=== PATIENT | female | born 1960 | race Caucasian/White ===

== ENCOUNTER 2020-09-15 12:25 | Observation (INO) ==
--- NOTE | 2020-08-19 10:02 | PAT Medication Instructions ---
Medication Instructions Date of Service August 19, 2020 Home Medications Cbd Oil 1 dose PO DAILY Metabolic Mass Spec 1 dose PO QAM Probiotic 1 dose PO QAM aspirin [Aspir-81] 81 mg PO QAM cholecalciferol (vitamin D3) [Vitamin D3] 125 mcg PO QAM ezetimibe 10 mg PO QAM fexofenadine [Tara Allergy] 180 mg PO QAM hydrochlorothiazide 25 mg PO QAM losartan 100 mg PO QAM meloxicam 15 mg PO QPM omeprazole 20 mg PO DAILY PRN ASK your surgeon for instructions meloxicam 15 mg PO QPM STOP taking 2 weeks before surgery (or as soon as possible if surgery is within 2 weeks) Metabolic Mass Spec 1 dose PO QAM DO NOT take the morning of surgery Cbd Oil 1 dose PO DAILY Probiotic 1 dose PO QAM cholecalciferol (vitamin D3) [Vitamin D3] 125 mcg PO QAM fexofenadine [Tara Allergy] 180 mg PO QAM hydrochlorothiazide 25 mg PO QAM losartan 100 mg PO QAM Take morning of surgery With a small sip of water, OTHERWISE NOTHING TO EAT OR DRINK AFTER MIDNIGHT: aspirin [Aspir-81] 81 mg PO QAM (take morning of surgery unless told otherwise by surgeon) ezetimibe 10 mg PO QAM omeprazole 20 mg PO DAILY PRN (if needed) Take evening before surgery omeprazole 20 mg PO DAILY PRN (if needed) Other Notes If you have any questions please call us at [phone] or [phone] or [phone] or [phone]
--- NOTE | 2020-08-21 12:12 | Anesthesiology Consultation ---
Date of Service August 21, 2020 Assessment & Plan (1) Encounter for pre-operative examination: COVID Status: As of 08/21 assessment, patient denies travel to endemic area, known exposure/sick contacts, or symptoms of COVID19. Patient instructed that they and their household members must follow strict social distancing guidelines, wear a mask in public and avoid travel/events/gatherings for 14 days prior to surgery. Preoperative COVID19 testing to be completed prior to surgery per surgeon's arrangements (per pt 09/09). Patient made aware to self-isolate as much as possible between COVID testing and surgery. Chart Review Chart Review: Acceptable Risk for Surgery and Patient seen in Pre Admission Testing Teaching & Discussion Instructed NPO after midnight before surgery, except medications with 15 cc of water. Medication instructions provided according to the PAT guidelines. History Surgery Operation Date: 09/15/20 07:00 Proposed Procedures p Right Anterior Approach Total Hip Arthroplasty - Eddy Miles DO Height/Weight Height: 5 ft 4 in Weight: 92.7 kg Allergies Allergy/AdvReac Type Severity Reaction Status Date / Time No Known Allergies Allergy Verified 07/29/20 13:56 Medications Home Medications Medication Instructions Recorded Confirmed Last Taken Cbd Oil 1 dose PO DAILY 07/29/20 07/29/20 Unknown Metabolic Automotive Designer 1 dose PO QAM 07/29/20 07/29/20 Unknown Probiotic 1 dose PO QAM 07/29/20 07/29/20 Unknown aspirin [Aspir-81] 81 mg PO QAM 07/29/20 07/29/20 Unknown cholecalciferol (vitamin D3) 125 mcg PO QAM 07/29/20 07/29/20 Unknown [Vitamin D3] ezetimibe 10 mg PO QAM 07/29/20 07/29/20 Unknown fexofenadine [Tara Allergy] 180 mg PO QAM 07/29/20 07/29/20 Unknown hydrochlorothiazide 25 mg PO QAM 07/29/20 07/29/20 Unknown losartan 100 mg PO QAM 07/29/20 07/29/20 Unknown meloxicam 15 mg PO QPM 07/29/20 07/29/20 Unknown omeprazole 20 mg PO DAILY PRN 07/29/20 07/29/20 Unknown Past Medical History Medical History (Updated 08/26/20 @ 08:25 by Suraj Villalobos) Bruxism Diverticular disease Fatty liver GERD (gastroesophageal reflux disease) History of gout HLD (hyperlipidemia) HTN (hypertension) Irregular heart rhythm 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 TMJ (temporomandibular joint disorder) Exercise / Class Metabolic Activity II 4-5 Yardwork/Stairs/Walk up hill (Currently limited by severe hip pain but denies CP or SOB with 1 FOS) Past Family History Family History Other No family history of adverse response to anesthesia Past Surgical History Surgical History History of arthroscopy of left knee History of carpal tunnel release of both wrists History of total abdominal hysterectomy and bilateral salpingo-oophorectomy Past Anesthesia History No Hx of Anesthesia Complications and No Family Hx of Anesthesia Complications History of PONV History of PONV (relieved by pretreatment) and Hx of Motion Sickness Social History Smoking Status: Never smoker Do You Dip or Chew Tobacco: No Hx Alcohol Use: Yes alcohol intake frequency: a few times a month Hx Substance Use: No substance use type: does not use Review of Systems Pt denies any recent chest pain, shortness of breath, cough, fever, URI, or unc ontrolled acid reflux. +heart palpitations correlating with hip pain Physical Exam Vital Signs BP: 157/99 P: 93bpm SPO2: 97% RA T: 98.9 F R: 16 ENMT Mouth: + chipped teeth (filling fell out of lower L molar) and + macroglossia; no dentures, no dental restorations and no loose teeth Thyromental Distance: > or= 3.5 Finger Breadths Mallampati Class: II Neck normal visual inspection; neck extension not limited Respiratory normal respiratory effort, lungs clear to auscultation Cardiovascular RRR, no murmur, no edema Vessels: no carotid bruit Testing Laboratory Results 08/21/20 12:34 08/21/20 12:34 PT 9.5 Seconds (9.0-12.0) 08/21/20 12:34 INR 0.9 (0.9-1.1) 08/21/20 12:34 APTT 23.8 Seconds (21.0-31.0) 08/21/20 12:34 Hemoglobin A1c 5.5 % (4.5-5.6) 08/21/20 12:34 Urine Color Yellow 08/21/20 Unknown Urine Appearance Clear (Clear) 08/21/20 Unknown Urine pH 5.0 (4.5-7.5) 08/21/20 Unknown Ur Specific [place] 1.011 (1.000-1.030) 08/21/20 Unknown Urine Protein Negative (Negative) 08/21/20 Unknown Urine Glucose (UA) Negative (Negative) 08/21/20 Unknown Urine Ketones Negative (Negative) 08/21/20 Unknown Urine Nitrite Negative (Negative) 08/21/20 Unknown Ur Leukocyte Esterase Trace (Negative) H 08/21/20 Unknown Urine WBC (Auto) 1-5 /hpf (0-5) 08/21/20 Unknown Urine RBC (Auto) 0-4 /hpf (0-4) 08/21/20 Unknown U Hyaline Cast (Auto) 1-5 /lpf (0-5) 08/21/20 Unknown U Epithel Cells (Auto) 5-10 /lpf (0-5) H 08/21/20 Unknown Urine Bacteria (Auto) Negative (Negative) 08/21/20 Unknown Blood Type A Positive 08/21/20 12:34 Antibody Screen NEGATIVE 08/21/20 12:34 Electrocardiogram Date: 08/21/20 Findings: + NSR @ (77bpm) Nonspecific ST abnormality. Chest X-Ray Date: 08/21/20 Findings: + NAD
--- NOTE | 2020-08-21 12:57 | XRay Report ---
XR chest Pre-admission PA/Lat CLINICAL HISTORY: Chest COMPARISON STUDY: No previous studies for comparison. FINDINGS: The cardiac and mediastinal contours are normal. There is no evidence of focal pulmonary co nsolidation. There is no evidence of failure. No pleural effusions are visualized.[ IMPRESSION: No active disease in the chest. ACT 112: Negative or not required by law. Electronically signed by: Robbie Jurado M.D. 08/21/2020 12:56 PM
[2020-08-21 13:39] LABS: Basophils # (auto) 0.03 K/uL (0-0.2); Basophils % (auto) 0.4 %; Eosinophils # (auto) 0.12 K/uL (0-0.5); Eosinophils % (auto) 1.4 %; Hematocrit (blood only) 39.5 % (37-47); Hemoglobin 12.8 g/dL (12.0-16.0); Immature Granulocytes # (auto) 0.01 K/uL (0.00-0.02); Immature Granulocytes % (auto) 0.1 %; Lymphocytes # (auto) 1.92 K/uL (1.2-3.4); Lymphocytes % (auto) 22.8 %; Mean Corpuscular Hemoglobin 28.8 pg (25-34); Mean Corpuscular Hgb Conc 32.4 g/dL (32-36); Mean Corpuscular Volume 88.8 fL (80-100); Monocytes # (auto) 0.52 K/uL (0.11-0.59); Monocytes % (auto) 6.2 %; Neutrophils # (auto) 5.83 K/uL (1.4-6.5); Neutrophils % (auto) 69.1 %; Platelet Count 303 K/uL (130-400); RDW Coefficient of Variation 13.9 % (11.5-14.5); RDW Standard Deviation 45.7 fL (36.4-46.3); Red Blood Count 4.45 M/uL (4.2-5.4); White Blood Count 8.43 K/uL (4.8-10.8)
[2020-08-21 13:45] LABS: Appearance Urine Clear (Clear); Bacteria Urine Automated Negative (Negative); Bilirubin Urine Negative (Negative); Blood Urine Negative (Negative); Color Urine Yellow; Glucose Urine UA Negative (Negative); Ketones Urine Negative (Negative); Leukocyte Esterase Urine Trace (Negative); Nitrite Urine Negative (Negative); Protein Urine Negative (Negative); RBC Urine Automated 0-4 /hpf (0-4); Specific Gravity Urine 1.011 (1.000-1.030); Urobilinogen Urine Negative (Negative)
[2020-08-21 13:49] LABS: Albumin Level 3.5 gm/dl (3.4-5.0); BUN Creatinine Ratio 23.2 (10-20); Calcium 8.9 mg/dl (8.5-10.1); Creatinine Clr Calc Pharmacy 96.9 ml/min; Est GFR (African American) 110.4; Est GFR (Non-African American) 95.3; Potassium 3.5 mmol/L (3.5-5.1)
[2020-08-21 13:54] LABS: INR 0.9 (0.9-1.1); Partial Thromboplastin Ratio 0.9; Partial Thromboplastin Time 23.8 Seconds (21.0-31.0); Prothrombin Time 9.5 Seconds (9.0-12.0)
[2020-08-21 14:06] LABS: Estimated Average Glucose 111 mg/dl; Hemoglobin A1C 5.5 % (4.5-5.6)
--- NOTE | 2020-08-22 06:57 | Electrocardiogram Report ---
Test Reason : Blood Pressure : / mmHG Vent. Rate : 077 BPM Atrial Rate : 077 BPM P-R Int : 164 ms QRS Dur : 090 ms QT Int : 402 ms P-R-T Axes : 068 035 051 degrees QTc Int : 454 ms Normal sinus rhythm Nonspecific ST abnormality Abnormal ECG No previous ECGs available Confirmed by Homero Lea ([id number]) on 08/22/2020 6:57:41 AM Referred By: Eddy Miles Confirmed By:Homero Lea
--- NOTE | 2020-09-14 09:38 | History & Physical Report ---
Date of Service September 15, 2020 Assessment & Plan (1) Degenerative joint disease of right hip: I have indicated the patient for right anterior total hip replacement. The risks, benefits and complications of surgery were explained to the patient which include but not limited to infection, acute blood loss, DVT/PE, injury to nerves, vessels, bone, soft tissue, arthrofibrosis, chronic pain, failure of the prosthesis, hip dislocation, leg length discrepancy, need for additional surgery, cardiac and pulmonary events and . The patient wished to proceed with surgery and informed consent was obtained at this time. We will plan for 81mg ASA BID post-operatively for DVT prophylaxis. Upon discharge the patient will be discharged home with home health services. Appropriate clearances by PCP were obtained. History of Present Illness Chief Complaint: Right hip pain/DJD/AVN Primary Care Provider: Dr. Bauer The patient is a 59 year old female who presents with complaints of severe right hip pain and DJD. The patient has failed outpatient conservative treatments to this point which included NSAIDs, activity modification, home exercise/walking program. The patient's pain and limited function have progressed to the point where they severely hinder their activities of daily living and they no longer tolerate exercise programs. They are requesting to proceed with total hip replacement surgery. Allergies Allergy/AdvReac Type Severity Reaction Status Date / Time No Known Allergies Allergy Verified 09/15/20 12:49 Home Medications Medication Instructions Recorded Confirmed Type Cbd Oil 1 dose PO DAILY 07/29/20 09/15/20 History Metabolic Inside Technical Sales Representative 1 dose PO QAM 07/29/20 09/15/20 History Probiotic 1 dose PO QAM 07/29/20 09/15/20 History aspirin [Aspir-81] 81 mg PO QAM 07/29/20 09/15/20 History cholecalciferol (vitamin D3) 125 mcg PO QAM 07/29/20 09/15/20 History [Vitamin D3] ezetimibe 10 mg PO QAM 07/29/20 09/15/20 History fexofenadine [Tara Allergy] 180 mg PO QAM 07/29/20 09/15/20 History hydrochlorothiazide 25 mg PO QAM 07/29/20 09/15/20 History losartan 100 mg PO QAM 07/29/20 09/15/20 History meloxicam 15 mg PO QPM 07/29/20 09/15/20 History omeprazole 20 mg PO DAILY PRN 07/29/20 09/15/20 History Past Med/Surg History Medical History Bruxism Diverticular disease Fatty liver GERD (gastroesophageal reflux disease) History of gout HLD (hyperlipidemia) HTN (hypertension) Irregular heart rhythm 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 TMJ (temporomandibular joint disorder) Surgical History History of arthroscopy of left knee History of carpal tunnel release of both wrists History of total abdominal hysterectomy and bilateral salpingo-oophorectomy Family History Other No family history of adverse response to anesthesia Social History Smoking Status: Never smoker Second Hand Exposure: No; Do You Dip or Chew Tobacco: No; Hx Alcohol Use: Yes Hx Substance Use: No Preferred Language: Yakut Communication Ability: Effective Parts Fabricator Required: No Beliefs That Will Affect Care: None Current Living Situation: Alone Feels Safe at Home: Yes Safety Concerns: Feels Safe At This Time Assistive Devices: Glasses Review of Systems Review of Systems: All systems reviewed & are unremarkable except as noted in HPI & below Constitutional: as per Subjective / HPI Physical Exam Physical Exam: RLE NVSI +EHL/FHL/TA/GS SILT grossly, +2 DP pulse, compartments soft NT, limited painful ROM of the hip, antalgic gait. Constitutional: WD/WN, vitals as above Eyes: PERRL, conjunctivae normal, anicteric sclerae ENMT: external ear and nose normal, oropharynx normal Neck: trachea midline, no thyromegaly Respiratory: normal respiratory effort, lungs clear to auscultation Cardiovascular: RRR, no murmur, no edema Gastrointestinal (Abdomen): normal bowel sounds, soft, nontender, no hepatosplenomegaly Musculoskeletal: no cyanosis or clubbing, extremities motor strength 5/5 Skin: no rashes, warm and dry Neurologic: patellar DTR's 2+ bilat, sensation intact Psychiatric: A+Ox3, euthymic affect Lymphatic: no cervical or axillary lymphadenopathy Results & Data Results & Data ([facility]) Diagnostic Findings Multiple views of the hip demonstrates severe DJD with complete loss of the joint space. +osteophytes, +sclerosis, severe AVN of the femoral head Pre Admission Testing Addendum Laboratory Results 08/21/20 12:34 08/21/20 12:34 PT 9.5 Seconds (9.0-12.0) 08/21/20 12:34 INR 0.9 (0.9-1.1) 08/21/20 12:34 APTT 23.8 Seconds (21.0-31.0) 08/21/20 12:34 Hemoglobin A1c 5.5 % (4.5-5.6) 08/21/20 12:34 Urine Color Yellow 08/21/20 Unknown Urine Appearance Clear (Clear) 08/21/20 Unknown Urine pH 5.0 (4.5-7.5) 08/21/20 Unknown Ur Specific [place] 1.011 (1.000-1.030) 08/21/20 Unknown Urine Protein Negative (Negative) 08/21/20 Unknown Urine Glucose (UA) Negative (Negative) 08/21/20 Unknown Urine Ketones Negative (Negative) 08/21/20 Unknown Urine Nitrite Negative (Negative) 08/21/20 Unknown Ur Leukocyte Esterase Trace (Negative) H 08/21/20 Unknown Urine WBC (Auto) 1-5 /hpf (0-5) 08/21/20 Unknown Urine RBC (Auto) 0-4 /hpf (0-4) 08/21/20 Unknown U Hyaline Cast (Auto) 1-5 /lpf (0-5) 08/21/20 Unknown U Epithel Cells (Auto) 5-10 /lpf (0-5) H 08/21/20 Unknown Urine Bacteria (Auto) Negative (Negative) 08/21/20 Unknown Blood Type A Positive 08/21/20 12:34 Antibody Screen NEGATIVE 08/21/20 12:34
[~2020-09-15 12:25] MED LIST: ACETAMINOPHEN 500 MG TAB PO SCH; BUPIVACAINE 0.5 % 5 MG/1 ML PF 10ML VIAL ONE; CeleBREX 200 MG CAP PO SCH; FAMOTIDINE 20 MG TAB PO SCH; GABAPENTIN 600 MG DOSE PO SCH; LR 500ML BOLUS, THEN 15ML/HR IV SCH; METOCLOPRAMIDE HCL 10 MG TABLET PO SCH; ROPIVACAINE 0.5% HCL/PF 150 MG, BUPIVACAINE 0.75% MPF 20 ML, EPINEPHrine 30MG/30ML (OR ... INFIL SCH; Scopolamine 1 MG TDSY TD SCH; TRANEXAMIC ACID 1,000 MG **IV Intra-op IV SCH; TRANEXAMIC ACID 1,000 MG **IV Pre-op IV SCH; ceFAZolin 2000MG 2,000 MG/15 ML SYR IV SCH; dexAMETHasone 4 MG TAB PO SCH
[2020-09-15] MEDS ORDERED: PROPOFOL IV EMULSION 10 MG/ML 20 ML VIAL IV ONE (13:38)
[2020-09-15] MEDS ORDERED: fentaNYL citrate 100 MCG/2 ML VIAL ONE (13:38)
[2020-09-15] MEDS ORDERED: MIDAZOLAM HCL 1 MG/ML 2ML VIAL ONE ×3 (13:38→15:22)
--- NOTE | 2020-09-15 14:33 | History & Physical Bridge Note ---
Date of Service September 15, 2020 History & Physical Bridge Note I have examined the patient, reviewed the History & Physical and in the interval since the performance of the History & Physical I have noted the following changes of clinical significance: no changes noted
[2020-09-15] MEDS ORDERED: ORTHO JOINT ANESTHETIC ONE (14:37)
[2020-09-15] MEDS ORDERED: ePHEDrine sulfate 50 MG/ML AMP IV PRN (15:08)
[2020-09-15] MEDS ORDERED: ATROPINE SULFATE 0.1 MG/ML 10ML SYR IV PRN (15:08)
[2020-09-15] MEDS ORDERED: LIDOCAINE 2% 2 ML VIAL/AMP(20MG/ML) INFIL ONE (16:20)
--- NOTE | 2020-09-15 16:55 | Post Operative Brief Note ---
Immediate Post Op Note v1 Date of Surgery September 15, 2020 Pre & Post Diagnosis Operation Date: 09/15/20 14:20 Pre-Op Diagnosis: Unilateral Primary Osteoarthritis, Left Hip Post-Op Diagnosis: Unilateral Primary Osteoarthritis, Left Hip I identified the patient and participated in the time-out.: Yes Procedure Operation Date: 09/15/20 14:20 Actual Procedures p Right Anterior Approach Total Hip Arthroplasty(Right) - Eddy Miles DO Surgeon Eddy Miles DO Buttonhole Marker Bowen Koroma Estimated Blood Loss 175 Findings Consistent with Post-Op Diagnosis Fluids See anesthesia report Specimens Femoral head Anesthesia Type Spinal MAC Complications none Disposition Disposition: Recovery Room Overlapping Procedure I was present for: the critical portions of procedure. I was immediately available: during the entire case. Back up surgeon: was not required during procedure.
--- NOTE | 2020-09-15 16:57 | Operative Report ---
Post Operative Report Pre & Post Diagnosis Operation Date: 09/15/20 14:20 Pre-Op Diagnosis: Unilateral Primary Osteoarthritis, Left Hip Post-Op Diagnosis: Unilateral Primary Osteoarthritis, Left Hip I identified the patient and participated in the time-out.: Yes Procedure Operation Date: 09/15/20 14:20 Actual Procedures p Right Anterior Approach Total Hip Arthroplasty(Right) - Eddy Miles DO Surgeon Eddy Miles DO Utility Bag Assembler Bowen Koroma Estimated Blood Loss 175 Findings Consistent with Post-Op Diagnosis Fluids See anesthesia report Specimens Femoral head Anesthesia Type Spinal MAC Complications none Disposition Disposition: Recovery Room Indications The patient is a 59-year-old female who presents with severe progressive right hip DJD/AVN who has failed outpatient conservative treatments. I indicated the patient for a anterior total hip replacement and the risks and benefits were explained in detail which include but not limited to infection, bleeding, blood clot, damage to surrounding bone, nerves, vessels, soft tissue, hip dislocation, failure of the prosthesis, leg length discrepancy, need for additional surgery and . The patient agreed to proceed with replacement of the hip and informed consent was obtained. Appropriate clearances were obtained. Description of Procedure COMPONENTS USED: [employer] hip system: Acetabulum size 50, femur size 8 high offset, femoral head 32+0, liner 50x32, acetabular screw 25 mm x 2. DESCRIPTION OF PROCEDURE: Following satisfactory spinal anesthesia, the patient was placed supine on the OR table. The left leg was placed in the well leg nath and the right leg in the traction device. The right leg was prepared with ChloraPrep and draped sterilely. A surgical timeout was performed, patient identified and site eduardo verified. Appropriate antibiotics were given. A standard anterior approach in the interval between the sartorius and tensor muscles was performed. Dissection was carried down through subcutaneous tissues. Electrocautery was utilized for hemostasis. Circumflex femoral vessels were identified, tied and ligated. The anterior capsular fat pad was removed and the capsulotomy was performed revealing the arthritic femoral neck and head. A femoral neck cut was made with reciprocating saw and the bone fragments removed. The acetabular self-retraining retractor was placed. Acetabular reaming was completed under fluoroscopic guidance, a 50 shell was impacted into an anatomic position and secured with a acetabular screw. Local anesthetic was placed and following irrigation, the polyethylene liner was placed. The femur was placed into position of external rotation, extension and adduction. Femoral canal was prepared up to the size 8 high offset. Trial reduction with a 32+ neck length head showed good soft tissue tension, leg lengths restored, and good fit and fill of the proximal canal using fluoroscopic landmarks. The hip was dislocated. The trial component was removed. The final implant was placed. The hip was irrigated with sterile saline solution and reduced. A Betadine soak was performed. After 3 minutes, the hip was once more irrigated with copious sterile saline solution with bacitracin. Rakel-incisional soft tissue was injected utilizing [place] [facility] which includes a combination of Ropivicaine 0.5% 150mg, Bupivicaine 0.5%/Epinephrine 1:200,000 30ml, Toradol 30mg, Dexamethasone 4mg, Ketamine 10mg, Clonidine 100mcg and NSS 30ml solution. The capsule was then closed with 1-0 Vicryl interrupted figure of eight sutures. The fascia was closed with a running suture of #1 Vicryl, the subcutaneous tissues with 2-0 Vicryl and the skin was closed with shara. A sterile dry dressing was applied which included ana maría incisional VAC. The patient tolerated the procedure well and was transported to PACU in stable condition. Due to the complex nature of the procedure, the entire surgery was performed with the operational assistance of Bowen Koroma PA-C. The certified ophthalmic surgical assistant, under direct supervision, was involved in the actual performance of all aspects of the surgical procedure including patient positioning, hemostasis, tissue retraction, instrument management and wound closure. I attest to the content of the Intraoperative Record and any orders documented therein. Any exceptions are noted below.
--- NOTE | 2020-09-15 18:09 | Orthopedic Progress Note ---
Date of Service September 15, 2020 Assessment & Plan (1) Degenerative joint disease of right hip: Status post right anterior total hip arthroplasty -Ancef x24 -DVT prophylaxis: SCDs, teds, 81 mg ASA twice daily -Weight-bear as tolerates right lower extremity -PT/OT -Postoperative x-ray demonstrates well aligned well fixed prosthesis without fracture or dislocation -A.m. labs -DC planning Admission and Anticipated Discharge Date Admission Date: September 15, 2020 Subjective Post Operative Progress Note Patient seen sitting up in bed, comfortable, denies complaints, pain well controlled, no acute issues. Review of Systems Review of Systems: All systems reviewed & are unremarkable except as noted in HPI & below Constitutional: as per Subjective / HPI Physical Exam Physical Exam: Right lower extremity physical exam limited secondary to spinal anesthesia, +2 dorsalis pedis pulse, compartment soft nontender, dressing clean dry and intact. Constitutional: WD/WN, vitals as above Results & Data ([facility]) Vital Signs (Past 12 Hours) Vital Signs Temp Pulse Pulse Resp BP Pulse Ox 09/15/20 17:35 72 18 156/90 H 96 09/15/20 17:25 69 15 160/90 H 95 09/15/20 17:17 36.6 C 77 17 152/83 H 97 09/15/20 13:37 190/110 H 09/15/20 13:01 37.1 C 87 20 191/110 H 97
[2020-09-15] MEDS ORDERED: diphenhydrAMINE Capsule 25 MG CAP PO PRN (18:12)
[2020-09-15] MEDS ORDERED: ONDANSETRON INJ 2 MG/ML 2 ML VIAL IV PRN (18:12)
[2020-09-15] MEDS ORDERED: traMADol HCL 50 MG TABLET PO PRN (18:12)
[2020-09-15] MEDS ORDERED: METOCLOPRAMIDE HCL INJ 5 MG/ML 2 ML VIAL IV PRN (18:12)
[2020-09-15] MEDS ORDERED: NALOXONE HCL 0.4 MG/1 ML VIAL/CARP IV PRN (18:12)
[2020-09-15] MEDS ORDERED: SODIUM CHLORIDE 0.9% 1000ML 1,000 ML IV SCH (18:12)
[2020-09-15] MEDS ORDERED: MAGNESIUM HYDROXIDE SUSP 30 ML UDC PO PRN (18:12)
[2020-09-15] MEDS ORDERED: bisacodyL 10 MG SUPP PR PRN (18:12)
[2020-09-15] MEDS ORDERED: HYDROmorphone INJ 0.5 MG/0.5 ML SYR IV PRN (18:12)
[2020-09-15] MEDS ORDERED: PANTOprazole 40 MG TAB PO PRN (18:21)
[2020-09-15] MEDS: Scopolamine CHECK PATCH PLACEMENT SCH ×2 (18:35→23:25)
--- NOTE | 2020-09-15 18:37 | Anesthesiology Progress Note ---
Date of Service September 15, 2020 Anesthesia Post Procedure Vital Signs Vital Signs: Temp Pulse Pulse Resp BP Pulse Ox 09/15/20 18:15 36.5 C 67 17 168/100 H 98 09/15/20 17:35 72 18 156/90 H 96 09/15/20 17:25 69 15 160/90 H 95 09/15/20 17:17 36.6 C 77 17 152/83 H 97 09/15/20 13:37 190/110 H 09/15/20 13:01 37.1 C 87 20 191/110 H 97 Pain Intensity Right Hip: Pain Intensity: 0 Transfer of Care Handoff Completed per policy Notes Mental Status: alert / awake / arousable and participated in evaluation Patient Amnestic to Procedure: Yes Nausea / Vomiting: adequately controlled Pain: adequately controlled Airway Patency, RR, SpO2: stable & adequate BP & HR: stable & adequate Hydration State: stable & adequate Anesthetic Complications: no major complications apparent and Pt Satisfied with anesthetic care
[2020-09-15] MEDS ORDERED: hydroCHLOROthiazide 25 MG TAB PO STA (18:53)
[2020-09-15] MEDS ORDERED: LOSARTAN POTASSIUM 50 MG TAB PO ONE (19:15)
[2020-09-15] MEDS: KETOROLAC TROMETHAMINE 15 MG/ML VIAL IV SCH (20:29)
[2020-09-15] MEDS: DOCUSATE SODIUM 100 MG CAP PO SCH (20:31)
[2020-09-15] MEDS ORDERED: SENNA 8.6 MG TAB PO SCH (21:00)
[2020-09-15] MEDS: ACETAMINOPHEN 500 MG TAB PO SCH (21:05)
--- NOTE | 2020-09-15 21:29 | Fluoroscopy Report ---
INTRAOPERATIVE RADIOGRAPHS CLINICAL HISTORY: Right hip arthroplasty. Fluoroscopy time: 30 seconds. FINDINGS: 2 spot fluoroscopic views of the right hip are presented. A bipolar right hip arthroplasty is in near-anatomic alignment. At least 2 cortical lag screws transfix the acetabular cup. There is n o evidence of acute fracture on these fluoroscopic views. Arthritic change in the left hip is partial ly visualized. IMPRESSION: Intraoperative images from a right hip arthroplasty procedure as above. Electronically signed by: Taran Read M.D. 09/15/2020 9:28 PM
--- NOTE | 2020-09-15 21:30 | XRay Report ---
SINGLE VIEW PELVIS; SINGLE VIEW RIGHT HIP CLINICAL HISTORY: Postoperative examination. FINDINGS: An AP portable view of the hips and pelvis with a crosstable lateral portable view of the r ight hip are obtained. A bipolar right hip arthroplasty is in near-anatomic alignment. At least 2 co rtical lag screws transfix the acetabular cup. No acute fracture is identified. There are expected po stoperative changes overlying the right hip including skin clips, subcutaneous gas, and soft tissue s welling. IMPRESSION: Expected postoperative findings status post right hip arthroplasty. No acute fracture is seen. ACT 112: Negative or not required by law. Electronically signed by: Taran Read M.D. 09/15/2020 9:29 PM
[2020-09-15] MEDS: ceFAZolin 2000MG 2,000 MG/15 ML SYR IV SCH (23:24)
[2020-09-16] MEDS: KETOROLAC TROMETHAMINE 15 MG/ML VIAL IV SCH ×3 (01:14→12:55)
[2020-09-16] MEDS: ACETAMINOPHEN 500 MG TAB PO SCH ×2 (05:09→12:55)
[2020-09-16 06:56] LABS: Basophils # (auto) 0.01 K/uL (0-0.2); Basophils % (auto) 0.1 %; Eosinophils # (auto) 0.01 K/uL (0-0.5); Eosinophils % (auto) 0.1 %; Hemoglobin 11.9 g/dL (12.0-16.0); Immature Granulocytes # (auto) 0.02 K/uL (0.00-0.02); Immature Granulocytes % (auto) 0.1 %; Lymphocytes # (auto) 1.37 K/uL (1.2-3.4); Mean Corpuscular Hemoglobin 28.9 pg (25-34); Mean Corpuscular Hgb Conc 33.1 g/dL (32-36); Mean Corpuscular Volume 87.4 fL (80-100); Mean Platelet Volume 10.4 fL (7.4-10.4); Monocytes # (auto) 0.94 K/uL (0.11-0.59); Monocytes % (auto) 6.9 %; Neutrophils % (auto) 82.8 %; Platelet Count 279 K/uL (130-400); RDW Coefficient of Variation 13.6 % (11.5-14.5); RDW Standard Deviation 43.7 fL (36.4-46.3); Red Blood Count 4.12 M/uL (4.2-5.4); White Blood Count 13.65 K/uL (4.8-10.8)
[2020-09-16 07:28] LABS: BUN Creatinine Ratio 19.5 (10-20); Calcium 8.8 mg/dl (8.5-10.1); Creatinine Clr Calc Pharmacy 113.7 ml/min; Est GFR (African American) 116.9 ml/min; Est GFR (Non-African American) 100.9 ml/min; Potassium 3.4 mmol/L (3.5-5.1)
[2020-09-16] MEDS: ceFAZolin 2000MG 2,000 MG/15 ML SYR IV SCH (08:28)
[2020-09-16] MEDS: DOCUSATE SODIUM 100 MG CAP PO SCH (08:28)
[2020-09-16] MEDS: Scopolamine CHECK PATCH PLACEMENT SCH (08:30)
[2020-09-16] MEDS ORDERED: LOSARTAN POTASSIUM 50 MG TAB PO SCH (09:00)
[2020-09-16] MEDS ORDERED: hydroCHLOROthiazide 25 MG TAB PO SCH (09:00)
[2020-09-16] MEDS ORDERED: ASPIRIN 81 MG ECTAB PO SCH (09:00)
[2020-09-16] MEDS ORDERED: MULTIVITAMIN TAB PO SCH (09:00)
[2020-09-16] MEDS ORDERED: EZETIMIBE 10 MG TABLET PO SCH (09:00)
--- NOTE | 2020-09-16 10:22 | Orthopedic Progress Note ---
Date of Service September 16, 2020 Assessment & Plan (1) Degenerative joint disease of right hip: Status post right anterior total hip arthroplasty POD#1 -Ancef x24 -DVT prophylaxis: SCDs, teds, 81 mg ASA twice daily -Weight-bear as tolerates right lower extremity -PT/OT -Postoperative x-ray demonstrates well aligned well fixed prosthesis without fracture or dislocation -A.m. labs - as above, hgb 11.9 -DC planning - home with Admission and Anticipated Discharge Date Admission Date: September 15, 2020 Subjective Post Operative Progress Note Patient seen sitting in chair at bedside, comfortable, denies complaints, pain well controlled, no acute issues. Denies F/C/N/V/SOB/CP. Review of Systems Review of Systems: All systems reviewed & are unremarkable except as noted in HPI & below Constitutional: as per Subjective / HPI Physical Exam Physical Exam: RLE NVSI +EHL/FHL/TA/GS SILT grossly, +2 DP pulse, compartments soft NT, dressing cdi. Constitutional: WD/WN, vitals as above Results & Data ([facility]) Vital Signs (Past 12 Hours) Vital Signs Temp Pulse Resp BP Pulse Ox 09/16/20 07:16 36.7 C 55 L 16 117/75 98 09/16/20 03:21 36.9 C 60 16 124/74 96 09/16/20 00:10 37.4 C 67 16 113/72 96 Laboratory Results 09/16/20 09/16/20 09/16/20 Range/Units 06:31 06:31 06:31 WBC 13.65 H (4.8-10.8) K/uL RBC 4.12 L (4.2-5.4) M/uL Hgb 11.9 L (12.0-16.0) g/dL Hct 36.0 L (37-47) % MCV 87.4 (80-100) fL MCH 28.9 (25-34) pg MCHC 33.1 (32-36) g/dL RDW Std Deviation 43.7 (36.4-46.3) fL RDW Coeff of Gilda 13.6 (11.5-14.5) % Plt Count 279 (130-400) K/uL MPV 10.4 (7.4-10.4) fL Immature Gran % (Auto) 0.1 % Neut % (Auto) 82.8 % Lymph % (Auto) 10.0 % [place] % (Auto) 6.9 % Eos % (Auto) 0.1 % Baso % (Auto) 0.1 % Neut # (Auto) 11.30 H (1.4-6.5) K/uL Lymph # (Auto) 1.37 (1.2-3.4) K/uL [place] # (Auto) 0.94 H (0.11-0.59) K/uL Eos # (Auto) 0.01 (0-0.5) K/uL Baso # (Auto) 0.01 (0-0.2) K/uL Immature Gran # (Auto) 0.02 (0.00-0.02) K/uL Sodium 142 (136-145) mmol/L Potassium 3.4 L (3.5-5.1) mmol/L Chloride 109 H (98-107) mmol/L Carbon Dioxide 26 (21-32) mmol/L Anion Gap 7.0 (3-11) BUN 11 (7-18) mg/dl Creatinine 0.58 L (0.6-1.2) mg/dl Est Cr Clr Drug Dosing 113.7 ml/min Est GFR ( Amer) 116.9 ml/min Est GFR (Non-Af Amer) 100.9 ml/min BUN/Creatinine Ratio 19.5 (10-20) Glucose 110 H (70-99) mg/dl Calcium 8.8 (8.5-10.1) mg/dl COVID-19 Eval Order Hepatitis C Ab Screen Neg (Neg) SARS-CoV-2, RNA, NAAT (NEGATIVE) 09/15/20 09/15/20 Range/Units 12:41 12:41 WBC (4.8-10.8) K/uL RBC (4.2-5.4) M/uL Hgb (12.0-16.0) g/dL Hct (37-47) % MCV (80-100) fL MCH (25-34) pg MCHC (32-36) g/dL RDW Std Deviation (36.4-46.3) fL RDW Coeff of Gilda (11.5-14.5) % Plt Count (130-400) K/uL MPV (7.4-10.4) fL Immature Gran % (Auto) % Neut % (Auto) % Lymph % (Auto) % [place] % (Auto) % Eos % (Auto) % Baso % (Auto) % Neut # (Auto) (1.4-6.5) K/uL Lymph # (Auto) (1.2-3.4) K/uL [place] # (Auto) (0.11-0.59) K/uL Eos # (Auto) (0-0.5) K/uL Baso # (Auto) (0-0.2) K/uL Immature Gran # (Auto) (0.00-0.02) K/uL Sodium (136-145) mmol/L Potassium (3.5-5.1) mmol/L Chloride (98-107) mmol/L Carbon Dioxide (21-32) mmol/L Anion Gap (3-11) BUN (7-18) mg/dl Creatinine (0.6-1.2) mg/dl Est Cr Clr Drug Dosing ml/min Est GFR ( Amer) ml/min Est GFR (Non-Af Amer) ml/min BUN/Creatinine Ratio (10-20) Glucose (70-99) mg/dl Calcium (8.5-10.1) mg/dl COVID-19 Eval [facility] Screen (Neg) SARS-CoV-2, RNA, NAAT NEGATIVE (NEGATIVE)
--- NOTE | 2020-09-16 18:40 | Discharge Summary ---
Date of Service September 16, 2020 Admission HPI Per Admitting Provider The patient is a 59 year old female who presents with complaints of severe right hip pain and DJD. The patient has failed outpatient conservative treatments to this point which included NSAIDs, activity modification, home exercise/walking program. The patient's pain and limited function have progressed to the point where they severely hinder their activities of daily living and they no longer tolerate exercise programs. They are requesting to proceed with total hip replacement surgery. Principal Diagnosis Right anterior total hip replacement Discharge Exam RLE NVSI +EHL/FHL/TA/GS SILT grossly, +2 DP pulse, compartments soft NT, dressing cdi. Constitutional WD/WN, vitals as above Discharge Data Allergies Allergy/AdvReac Type Severity Reaction Status Date / Time No Known Allergies Allergy Verified 09/15/20 12:49 Consultations 09/15/20 18:58 Consult Hospitalist Routine Procedures Performed Operation Date: 09/15/20 14:20 Actual Procedures p Right Anterior Approach Total Hip Arthroplasty(Right) - Eddy Miles DO Ordered Studies 09/15/20 14:20 FL hip RT 1V Routine Hospital Course (1) Degenerative joint disease of right hip: Hospital Course: On 09/15/30 the patient was taken to the operating room, adequate anesthesia administered and underwent a right anterior total hip arthroplasty. The patient tolerated the procedure well and was taken to the PACU in stable condition. Post-operatively the patient was started on a DVT ppx medication and given appropriate IV antibiotics. Consults were placed to physical therapy, occupational therapy and case management. On POD#1, the patient did well overnight and their pain was well controlled. Labs were drawn and the Hgb was 11.9. The patient progressed well with PT. Dressings were changed at this time and the incision was clean, dry and intact. The patients hospital stay was relatively uneventful and they were deemed stable by the orthopedic team and consultants to be discharged home with on 09/16/20. Discharge Instructions: Upon discharge the patient may weight bear as tolerates through their operative extremity. They were instructed to keep the incision clean and dry at all times. The patient may shower but should not submerge the incision, avoid bathing, pools and hot tubs. The patient was given a script for pain medication and should take as instructed. The patient was given a script for DVT ppx 81mg ASA BID and should take as directed. The patient was instructed to not drive or travel for long distances until cleared to do so. If the patient develops any symptoms of fevers, chills, nausea, vomiting, increased redness, swelling, pain or drainage from the surgical site, they should notify the office and/or proceed to the nearest emergency room. The patient should follow up in 10-14 days after surgery for their routine post-operative follow-up appointment and should call the office, to confirm the date and time. Status post right anterior total hip arthroplasty POD#1 -Ancef x24 -DVT prophylaxis: SCDs, teds, 81 mg ASA twice daily -Weight-bear as tolerates right lower extremity -PT/OT -Postoperative x-ray demonstrates well aligned well fixed prosthesis without fracture or dislocation -A.m. labs - as above, hgb 11.9 -DC planning - home with Total Time Total Time Spent Total Time Spent (In Minutes): 30 Discharge Plan Discharge Items Patient Disposition: Home - Home Health Services Reason For Visit: Unilateral Primary Osteoarthritis, right hip Discharge Diagnosis: Right anterior total hip replacement Condition on Discharge: Good Activity: Per Instructions section Lifting: Wait until after follow-up appointment Bathing: Keep incision dry Bathing Comment: No bathing, pools or hot tubs. Sexual Activity: Wait until after follow-up appointment Exercise/Sports: Wait until after follow-up appointment Driving/Machine Use: No driving. Weightbearing: Full weightbearing Non-emergency contact: Primary Care Provider and Surgeon Call non-emergency contact if: you have any medication questions, your symptoms worsen, your pain is not controlled, your pain is worsening, your pain is unusual for you, your pain is concerning for you, you have a fever, your temperature is above 101, your wound has increased redness, your wound has increased drainage and your wound pain has increased Follow-up/Referrals: Kaylyn Bauer MD [Primary Care Provider] - Diet: Regular Addtl Attending Provider Instructions: ACTIVITY RECOMMENDATIONS: SELF CARE INSTRUCTIONS AFTER TOTAL HIP REPLACEMENT : Direct Anterior Approach Until the incision and soft tissues around your hip have healed, there is a possibility that the hip prosthesis could dislocate. A. Hip flexion ( Up & Down out of chair or steps ) may be difficult. This is normal. B. Numbness in front of the thigh is also normal for a few weeks. C. Use hand rails when walking on stairs. D. Wear low heeled shoes with non-slip soles. E. Be sure that your floors are free of things that could trip you - throw rugs, electrical cords, small objects. Avoid wet and waxed floors, especially with crutches and canes. F. Try to walk several times a day with rest periods between. G. Continue with all the exercises taught to you in the hospital. Again, make walking a part of your daily routine. SPECIAL CARE INSTRUCTIONS: VERY IMPORTANT TO READ AND REVIEW A. You may still be at risk for phlebitis and blood clots. 1. Wear surgical stockings (MICHELE hose) for 2 weeks after surgery to improve circulation and reduce swelling. 2. Take Aspirin 81mg twice daily for 4 weeks or as directed by your doctor. This is your blood thinner. 3. High risk patients may be prescribed a stronger blood thinner if necessary. 4. If you are on Coumadin normally, your family doctor/market developer should monitor your blood work. Expect a phone call the day of or the day after bloodwork is drawn to adjust your dosage. B. You must take antibiotics before having dental work, bladder, bowel and other surgery. Your doctor will provide you with a permanent card to carry describing precautions. C. Call [facility] if you have a fever, redness or swelling around the incision, cloudy drainage from incision, or sudden increase in pain in your hip, not relieved by your regular pain medication. D. Please call the office at if you have any concerns or questions about your operation or recovery. * YOU MAY SHOWER, NO TUB BATHS UNTIL CLEARED BY YOUR DOCTOR. - Keep an extra close eye on the top portion of your incision. Be sure to keep clean & dry. * WEAR MICHELE HOSE 20 HOURS PER DAY FOR 2 WEEKS. * YOU MAY PROGRESS FROM A WALKER, TO A CANE, TO INDEPENDENT AT YOUR OWN PACE. * MOST PATIENTS WILL HAVE HOME NURSING FOR THERAPY. IF YOU DECIDE TO DO OUTPATIENT PHYSICAL THERAPY, PLEASE SCHEDULE THIS 3 TIMES PER WEEK. *JERO incisional vac is a special dressing covering your incision. This dressing provides a sterile dry environment while you are healing. The dressing is to be left in place for 7 days post-operatively. Your home nurse or surgeon will remove. If you develop any redness or blisters or have any questions notify your surgeon immediately. FOLLOW UP VISIT: If appointment is not already scheduled: Please call [facility] to make a follow-up appointment for 2 weeks after your surgery at . Pending Studies at Discharge: No Stand-Alone Forms: [facility], Opioid Pain Management, Smoking Cessation Medications and DC Order Prescriptions: New acetaminophen 500 mg Tablet 1,000 mg PO Q8 PRN (Reason: fever or pain) Qty: 90 RF: 0 aspirin 81 mg Tablet,Delayed Release (Dr/Ec) 81 mg PO BID Qty: 56 RF: 0 celecoxib [Celebrex] 200 mg Capsule 200 mg PO BID PRN (Reason: pain/inflammtion) Qty: 30 RF: 0 tramadol 50 mg Tablet 50 - 100 mg PO Q6H PRN (Reason: pain) Qty: 30 RF: 0 sennosides [Senokot] 8.6 mg Tablet 17.2 mg PO HS PRN (Reason: constipation) Qty: 30 RF: 0 Continued fexofenadine [Tara Allergy] 180 mg Tablet 180 mg PO QAM RF: 0 hydrochlorothiazide 25 mg Tablet 25 mg PO QAM RF: 0 losartan 100 mg Tablet 100 mg PO QAM RF: 0 ezetimibe 10 mg Tablet 10 mg PO QAM RF: 0 omeprazole 20 mg Tablet,Delayed Release (Dr/Ec) 20 mg PO DAILY PRN (Reason: gerd) RF: 0 cholecalciferol (vitamin D3) [Vitamin D3] 125 mcg (5,000 unit) Tablet 125 mcg PO QAM RF: 0 Cbd Oil 1 dose PO DAILY RF: 0 Metabolic [employer] 1 dose PO QAM RF: 0 Probiotic 1 dose PO QAM RF: 0 Discontinued meloxicam 15 mg Tablet 15 mg PO QPM RF: 0 aspirin [Aspir-81] 81 mg Tablet,Delayed Release (Dr/Ec) 81 mg PO QAM RF: 0 Discharge Orders: Discharge Order (Routine); Ordered 09/16/20 Ordered By: Eddy Sethi/Other Patient Handouts: DVT Post Op Prevention Admission Data Admit Date/Time: 09/15/20 17:19 Attending Provider: Eddy Miles Admit Provider: Eddy Miles Primary Care Provider: Kaylyn Bauer Other Providers: [facility],Home Healthcare Other Interventions: Discharge Summary Assessment (RN) Last Done: 09/16/20 11:30
[2020-09-17] MEDS ORDERED: CeleBREX 200 MG CAP PO SCH (09:00)
== END 2020-09-16 13:26 | disposition home health service (06) ==
LOC: ASU 12:25 → 3E 12:25